=== PATIENT | female | born 1995 | race African-American/Black ===

== ENCOUNTER 2017-03-21 16:00 | Inpatient (IN) ==
[2017-03-21] MEDS ORDERED: DINOPROSTONE VAG GEL 10 MG SYRINGE VAG ONE ×2 (17:28→17:59)
--- NOTE | 2017-03-21 17:40 | OB/GYN History & Physical ---
History of Present Illness Chief complaint: In for elective induction of labor due to term History of present illness: Ms. Ibarra is a 21 year old female who is a primigravida. Her IGNACIO is 03/28/2017 for an estimated gestational age of 39 weeks the patient presents for an elective induction of labor due to term . The risk and benefits have been thoroughly discussed with this patient and significant other, plan of care has been discussed with Dr. Rooney and all parties are in agreement plan. The [facility] and she received routine care, her course was uneventful. labs: She is a positive, serologies is nonreactive, hepatitis B negative, HIV negative, rubella is immune, GBS culture is negative. Review of systems is negative with exception of above. Home Medications Medication Instructions Recorded Confirmed Type Multivitamin () [ 1 tablet PO DAILY 12/06/16 03/21/17 History Vitamin] Allergies Allergy/AdvReac Type Severity Reaction Status Date / Time No Known Allergies Allergy Verified 12/06/16 14:22 12 point system: reviewed and no additional remarkable complaints except as stated Medical,Surgical,& Family Hx - Medical History Medical History: noncontributory Reproductive: History of: Sexually Transmitted Disorders (GC and Chlamydia in 2017) - Surgical History Reproductive Surgeries: Surgical HX of;: Breast Surgery (Breast biopsy) - Family History Family History: noncontributory - Social History Smoking Status: Never smoker Marital Status: Single Lives With:: Significant Other Functional capacity: independent ambulation 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 - Constitutional General appearance: no acute distress - Antepartum / Post Antepartum Exam Cervix - Dilatation: 1 cm Effacement: 50% Station: -1 Rupture: Intact Presentation: Vertex Heart Rate: 140 [place]: Irregular uterine contraction Breast: bilateral: normal Abdomen obstetrics: Present: bowel sounds normal Vagina: Present: normal moisture Uterus exam: Present: enlarged - Respiratory Respiratory exam: Present: clear to auscultation bilaterally - Cardiovascular Cardiovascular exam: Present: regular rate and rhythm - GI/Abdominal GI/Abdominal exam: Present: normal bowel sounds, soft - Extremities Exam Extremities exam: Present: normal inspection - Neurological Exam Neurological exam: Present: alert, oriented X3 - Psychiatric Psychiatric exam: Present: normal affect, normal mood - Skin Skin exam: Present: normal color, warm Assessment and Plan (1) Term Status: Acute Assessment and plan: Admit Prostin gel per protocol IV Pitocin per protocol if indicated Artificial rupture membranes when appropriate Internal monitors if indicated Epidural anesthesia if desired Anticipate Current Visit: Yes
[2017-03-21] MEDS: LACTATED RINGERS 1,000 ML IV SCH ×3 (17:41→21:14)
[2017-03-21] MEDS ORDERED: ONDANSETRON 4 MG/2 ML VIAL IV PRN (17:57)
[2017-03-21 18:31] LABS: Basophils % 0.1 % (0.0-0.8); Eosinophils # 0.1 10*3/uL (0.0-0.87); Eosinophils % 0.7 % (0.00-10.9); Hematocrit 36.8 VOL% (35.7-47.0); Hemoglobin 12.5 GM/DL (12.0-16.0); Immature Granulocytes % 0.5 %; Immature Granulocytes Absolute 0.04 #; Lymphocytes # 2.1 10*3/uL (1.4-4.0); Lymphocytes % 25.6 % (21.3-54.2); Mean Corpuscular Hemoglobin 31 PG (27-34); Mean Corpuscular Volume 90.2 FL (87-102); Mean Platelet Volume 11.6 FL (9.6-12.0); Monocytes % 12.3 % (1.7-12.7); Neutrophils % 60.8 % (38.7-73.9); Platelet Count 229 T/CUMM (130-400); Red Blood Count 4.08 MC/CUMM (3.8-5.5); Red Cell Distribution Width 14.3 % (9.3-17.3); White Blood Count 8.2 T/CUMM (4-12)
[2017-03-21 19:03] LABS: Albumin 2.9 G/DL (3.4-5.0); Bilirubin,Total 0.4 MG/DL (0.2-1.0); Osmolality,Calculated 273.4 MOS/KG (273-304); Potassium 3.8 MMOL/L (3.5-5.1); Total Protein 6.8 G/DL (6.4-8.3); Uric Acid 2.8 MG/DL (2.6-6.0)
[2017-03-21 19:11] LABS: Calcium 9.6 MG/DL (8.5-10.1)
[2017-03-21] MEDS ORDERED: FAMOTIDINE 20 MG/2 ML VIAL IV ONE (19:41)
[2017-03-21] MEDS ORDERED: CITRIC ACID/SODIUM CITRATE 30 ML UDCUP PO ONE (19:41)
[2017-03-21] MEDS ORDERED: ROPIVACAINE 0.5% 30 ML VIAL EPIDURAL ONE ×2 (19:43→20:27)
[2017-03-21] MEDS ORDERED: ePHEDrine 50 MG/ML AMP ONE (19:55)
[2017-03-21] MEDS ORDERED: fentaNYL 2 MCG/ROPIV 0.2% EPID 150 ML EPIDURAL ONE (20:12)
[2017-03-21] MEDS: AMPICILLIN INJ 2,000 MG in SODIUM CHLORIDE 0.9% 100 ML IV SCH (20:13)
[2017-03-21] MEDS ORDERED: fentaNYL 2 MCG/ROPIV 0.2% EPID 150 ML EPIDURAL SCH (20:33)
[2017-03-21] MEDS ORDERED: MEPERIDINE 25 MG/1 ML VIAL IV ONE (20:50)
[2017-03-21] MEDS ORDERED: MEPERIDINE 25 MG/1 ML VIAL ONE (20:53)
[2017-03-21] MEDS: PROMETHAZINE 25 MG/1 ML VIAL IM PRN (22:36)
[2017-03-21] MEDS: MEPERIDINE 50 MG/1 ML VIAL IV PRN (22:38)
[2017-03-22] MEDS: MEPERIDINE 50 MG/1 ML VIAL IV PRN ×3 (02:18→13:58)
[2017-03-22] MEDS: AMPICILLIN INJ 2,000 MG in SODIUM CHLORIDE 0.9% 100 ML IV SCH ×2 (02:20→08:16)
[2017-03-22] MEDS ORDERED: TERBUTALINE 1 MG/1 ML VIAL SUBCUT ONE (03:26)
[2017-03-22] MEDS: OXYTOCIN/LR 20 UNIT/1,000 ML BAG IV SCH ×2 (03:27→10:15)
[2017-03-22] MEDS: PROMETHAZINE 25 MG/1 ML VIAL IM PRN (04:17)
[2017-03-22] MEDS: LACTATED RINGERS 1,000 ML IV SCH (07:16)
[2017-03-22] MEDS: BUTORPHANOL 2 MG/ML VIAL IV PRN ×2 (09:15→11:36)
[2017-03-22] MEDS ORDERED: miSOPROStol 200 MCG TABLET ONE (13:20)
[2017-03-22] MEDS ORDERED: ePHEDrine 50 MG/ML AMP ONE (13:20)
[2017-03-22] MEDS ORDERED: RHO(D) IMMUNE GLOBULIN 300 MCG SYRINGE IM ONE (14:03)
[2017-03-22] MEDS ORDERED: MEASLES/MUMPS/RUBELLA VACCINE 0.5 ML VIAL SUBCUT ONE (14:03)
[2017-03-22] MEDS ORDERED: LANOLIN 50% CREAM 0.3 OZ TUBE TOP PRN (14:03)
[2017-03-22] MEDS ORDERED: WITCH HAZEL PADS 100/JAR TOP PRN (14:03)
[2017-03-22] MEDS ORDERED: DIPH/TET/ACEL PERT BOOSTER VACCINE 0.5 ML VIAL IM ONE (14:03)
[2017-03-22] MEDS ORDERED: BENZOCAINE 20%/MENTHOL 0.5% SPRAY 56 GM CAN TOP PRN (14:03)
[2017-03-22] MEDS ORDERED: BISACODYL 10 MG SUPP RECTAL PRN (14:03)
[2017-03-22] MEDS ORDERED: OXYTOCIN/LR 20 UNIT/1,000 ML BAG IV ONE (14:03)
[2017-03-22] MEDS ORDERED: oxyCODONE/ACETAMINOPHEN 5-325 MG TABLET PO PRN (14:03)
[2017-03-22] MEDS ORDERED: ACETAMINOPHEN 325 MG TABLET PO PRN (14:03)
[2017-03-22] MEDS ORDERED: HYDROCORTISONE 2.5% RECTAL CREAM 30 GM TUBE TOP PRN (14:03)
[2017-03-22] MEDS ORDERED: ACETAMINOPHEN/CODEINE 300-30 MG TABLET PO PRN (14:07)
[2017-03-22 14:11] LABS: Cord Arterial Blood HCO3 21.4 MMOL/L
--- NOTE | 2017-03-22 14:11 | Event Note ---
HPI: Ms. Ibarra presented to the labor department for elective induction of labor due to term . The risk and benefits were thoroughly discussed with the patient and significant other, plan of care was discussed with Dr. Rooney and all parties were in agreement with plan. Stage I: The patient was admitted and she received IV fluids and IV Prostin per protocol. She progressed through the night with a CAT 1 tracing she was eventually started on IV Pitocin per protocol. The patient had one variable deceleration and the Pitocin was discontinued for short. The patient attempted to receive an epidural however that to him per the anesthesia was unsuccessful therefore the patient only received IV pain meds for pain control. Pitocin was resumed and artificial rupture membranes was performed with clear fluid noted. The patient continued to progress in labor with a CAT 1 to CAT 2 tracing. The CAT 2 tracing was correct with oxygenation and position change. Otherwise the patient had an uneventful course of labor. Stage II: The patient was complete and complained of pressure and desire to push. She pushed for approximately 30 minutes at which time the 's head was delivered. A nuchal cord 1 was noted and reduced. The mouth and nose were suctioned out on the perineum. The remainder the infant was delivered at 151, a viable male was noted. Apgars were 8 at 1 minute and 9 at 5 minutes. weight was 7 pounds and 10 ounces. A cord pH was obtained and sent to the lab. The was placed on the mom's abdomen for skin to skin bonding. Stage III: Spontaneous delivery of a [place] placenta with a three-vessel cord noted. The placenta was further examined and appeared to be grossly intact. The vagina and cervix was inspected with a first-degree perineal laceration noted which was repaired. 1% lidocaine was used to anesthetize the area. The patient tolerated the procedure well. Estimated blood loss was approximately 150 cc. At the time of dictation mother and baby are both in stable condition.
[2017-03-22 14:14] LABS: Cord Venous Blood HCO3 21.5 MMOL/L; Cord Venous Blood PCO2 49.5 MMHG; Cord Venous Blood PO2 28.2
[2017-03-22] MEDS: DOCUSATE SODIUM 100 MG CAPSULE PO SCH (22:00)
[2017-03-22] MEDS: oxyCODONE/ACETAMINOPHEN 5-325 MG TABLET PO PRN (23:30)
[2017-03-23 05:30] LABS: Basophils % 0.2 % (0.0-0.8); Eosinophils # 0.1 10*3/uL (0.0-0.87); Eosinophils % 0.4 % (0.00-10.9); Hematocrit 31.9 VOL% (35.7-47.0); Hemoglobin 10.7 GM/DL (12.0-16.0); Immature Granulocytes % 0.6 %; Immature Granulocytes Absolute 0.09 #; Lymphocytes % 18.6 % (21.3-54.2); Mean Corpuscular HGB Conc 33.5 GM/DL (32-36); Mean Corpuscular Hemoglobin 31 PG (27-34); Mean Corpuscular Volume 90.9 FL (87-102); Mean Platelet Volume 10.9 FL (9.6-12.0); Monocytes # 1.6 10*3/uL (0.11-0.8); Monocytes % 10.3 % (1.7-12.7); Neutrophils # 11.1 10*3/uL (1.4-7.4); Neutrophils % 69.9 % (38.7-73.9); Platelet Count 202 T/CUMM (130-400); Red Blood Count 3.51 MC/CUMM (3.8-5.5); Red Cell Distribution Width 14.6 % (9.3-17.3); White Blood Count 15.9 T/CUMM (4-12)
[2017-03-23] MEDS: DOCUSATE SODIUM 100 MG CAPSULE PO SCH ×2 (08:25→21:30)
--- NOTE | 2017-03-23 11:16 | Progress Note ---
Family Medicine PN Sub Interval history: day #1 Status post vaginal Uterus is firm nontender Patient does complain of back discomfort where there was attempted epidural anesthetic. Extremities well with no limits Neurologically she is grossly intact Assessment and plan Continue with present therapy possible discharge in a.m. Exam (Progress Note) - Constitutional Vitals: Period Temp Pulse Resp BP Sys/[place] Pulse Ox Last 24 Hr 97.6 F-99.2 F 75-79 18-20 121-149/67-82 98-99 Results - Labs CBC & BMP: 03/23/17 05:17 03/21/17 18:25 Quality Measures - VTE Contraindication to Pharmacological VTE Prophylaxis: Clinical assessment deems Pt at low risk, no prophalaxis needed
--- NOTE | 2017-03-23 11:19 | Discharge Summary ---
Discharge Plan - Discharge Data Condition at Discharge: Stable Discharge Diet: advance to your usual diet Activity: resume usual activities as tolerated Hygiene: no restrictions Driving: no restrictions Contact your physician if you experience:: fever over 101, Bleeding - Discharge Medications New Acetamin/Codeine 300-30 Tab [Tylenol/Codeine #3] 2 tablet PO Q4H PRN #30 tablet PRN Reason: Pain Mild (1-3) Hydrocortisone 2.5% Rectal Cr [Anusol HC Cream] 1 applic TOP QID PRN #1 applic PRN Reason: Hemorrhoids Ibuprofen Tab [Motrin Tab] 800 mg PO Q6H PRN #30 tablet PRN Reason: Pain Moderate (4-7) Witch [place] Pads [Tucks Pads] 1 applic TOP Q4H PRN #1 applic PRN Reason: Hemorrhoids oxyCODONE/ACETAMINOPHEN 5-325 [Percocet 5-325] 1 tablet PO Q6H PRN #20 tablet PRN Reason: Pain Severe (8-10) No Action Multivitamin () [ Vitamin] 1 tablet PO DAILY - Follow Up or Referral - Forms/Instructions Exam - Constitutional Vitals: Period Temp Pulse Resp BP Sys/[place] Pulse Ox Last 24 Hr 97.6 F-99.2 F 75-79 18-20 121-149/67-82 98-99 Discharge Results Labs on day of discharge: Labs from last 24 hours 03/23/17 03/22/17 03/22/17 05:17 13:51 13:51 WBC 15.9 H D RBC 3.51 L Hgb 10.7 L Hct 31.9 L MCV 90.9 MCH 31 MCHC 33.5 RDW 14.6 Plt Count 202 MPV 10.9 Neut % (Auto) 69.9 Lymph % (Auto) 18.6 L [place] % (Auto) 10.3 Eos % (Auto) 0.4 Baso % (Auto) 0.2 Neut # (Auto) 11.1 H Lymph # (Auto) 3.0 [place] # (Auto) 1.6 H Eos # (Auto) 0.1 Baso # (Auto) 0.0 Immature Gran % 0.6 Nucleated RBC % 0.0 Immature Gran # 0.09 Nucleated RBCs # 0.00 Cord ABG pH 7.179 L Cord ABG pCO2 58.7 Cord ABG pO2 148.9 Cord ABG HCO3 21.4 Cord ABG Total CO2 23.2 Cord ABG Base Excess -7.8 Cord VBG pH 7.314 Cord VBG pCO2 49.5 Cord VBG pO2 28.2 Cord VBG HCO3 21.5 Cord VBG Total CO2 21.0 Cord VBG Base Excess -2.2 DS: Provider Date of admission: 03/21/17 17:57 Attending physician on admission: Jen Rooney MD Consults: 03/22/17 14:03 Consult to It Assistant [CONS] Routine Consult It Assistant: Breast Feeding Discharging clinician: Jen Rooney MD
[2017-03-23] MEDS: IBUPROFEN 800 MG TABLET PO PRN (13:15)
[2017-03-23] MEDS: oxyCODONE/ACETAMINOPHEN 5-325 MG TABLET PO PRN (21:30)
[2017-03-24] MEDS: oxyCODONE/ACETAMINOPHEN 5-325 MG TABLET PO PRN ×2 (03:00→09:28)
[2017-03-24] MEDS: DOCUSATE SODIUM 100 MG CAPSULE PO SCH (09:27)
[2017-03-24] MEDS: IBUPROFEN 800 MG TABLET PO PRN (09:27)
[2017-03-24 12:21] VITALS: BP 136/82
== END 2017-03-24 14:25 | disposition home or self-care (01) | DRG 560 ==
LOC: N.LDOUT 16:00 → N.LD 16:17 → N.OB 03-22 17:16
PROVIDERS: ADMIT Obstetrics & Gynecology; ATTEND Obstetrics & Gynecology